=== PATIENT | male | born 2005 | race Caucasian/White ===

== ENCOUNTER 2025-05-21 12:03 | Emergency (ER) | payer MEDICAID ==
[~2025-05-21] VITALS: Ht 175.3 cm; Wt 85.0 kg
[2025-05-21 13:03] VITALS: TEMP 37.1; O2SAT 100
[2025-05-21] MEDS: TETANUS, DIPHTHERIA, PERTUSSIS VAC/PF 0.5ML (>10YR OLD) IM ONE (14:35)
[2025-05-21] MEDS: BACITRACIN ZINC OINT UDPKT TOP ONE (14:36)
[2025-05-21] MEDS: LIDOCAINE HCL 1% 20ML VIAL INFIL ONE (14:36)
[2025-05-21] MEDS ORDERED: CEPH500T MT (15:45)
[2025-05-21] MEDS ORDERED: BO1 TP (15:45)
[2025-05-21 16:19] VITALS: BP 112/82; PULSE 69; RESP 16; O2SAT 100
== END 2025-05-21 16:25 | disposition home or self-care (01) ==
LOC: ER 12:03
DX: S61.412A Laceration without foreign body of left hand, initial encounter (principal); X58.XXXA Exposure to other specified factors, initial encounter; Y93.89 Activity, other specified; Y92.89 Other specified places as the place of occurrence of the external cause; Y99.8 Other external cause status
CPT/HCPCS: 90715; 12002; 90471; 99283; J2003; Z7610 ×3